=== PATIENT | female | born 2000 | race Caucasian/White ===

== ENCOUNTER 2019-06-03 10:47 | Emergency (ER) | payer OTHER ==
[2019-06-03 11:28] LABS: URINE APPEARANCE CLEAR; URINE BILIRUBIN NEGATIVE (NEGATIVE); URINE BLOOD NEGATIVE (NEGATIVE); URINE COLOR YELLOW; URINE GLUCOSE (UA) NEGATIVE (NEGATIVE); URINE KETONE NEGATIVE (NEGATIVE); URINE LEUKOCYTE ESTERASE NEGATIVE (NEGATIVE); URINE NITRITE NEGATIVE (NEGATIVE); URINE PROTEIN NEGATIVE (NEGATIVE); URINE UROBILINOGEN 0.2 E.U./dL (0.20 - 1.00)
[2019-06-03] MEDS ORDERED: KETOROLAC 30 MG/ML VIAL IVP ONE (11:31)
[2019-06-03 11:56] LABS: BASO % 0.3 % (0-6); EOS % 2.2 % (0-6); GRAN % 67.6 % (47-80); HEMATOCRIT 43.4 % (35.0-47.0); LYMPH % 25.6 % (16-45); MEAN CELL VOLUME 91.8 fl (81-97); MEAN CORPUSCULAR HEMOGLOBIN 29.6 pg (27-33); MEAN CORPUSCULAR HGB CONC 32.3 g/dl (32-36); MEAN PLATELET VOLUME 9.5 fl (7.4-10.4); MONO % 4.3 % (0-9); PLATELET COUNT 378 K/uL (130-400); RED BLOOD COUNT 4.73 M/uL (3.80-5.40); RED CELL DISTRIBUTION WIDTH 12.7 % (11.5-14.5); WHITE BLOOD COUNT W/O DIFF 7.7 K/uL (4.2-12.2)
--- NOTE | 2019-06-03 13:41 | ULTRASOUND REPORT ---
EXAMINATION: Complete Transabdominal and Endovaginal Ultrasound of the Pelvis EXAM DATE: 06/03/2019 1:04 PM TECHNIQUE: Endovaginal ultrasound imaging was performed after the transabdominal exam for better res olution. INDICATION: pain COMPARISON: None. Transabdominal Ultrasound of the Pelvis Findings: 1. Uterus Size: The uterus measures 7.8 x 3.8 x 4.6 cm in dimension (length x AP x width). 2. Endometrium: The endometrium images poorly transabdominally. The visualized endometrium measures 7 mm in thickness. 3. Myometrium: The myometrium images poorly transabdominally. The myometrium is unremarkable. 4. Ovaries: The right ovary measures 3.5 x 3.1 x 2.9 cm in dimension. The left ovary measures 3.1 x 2.4 x 2.7 cm in dimension. 5. Bilateral Adnexa: No adnexal masses or abnormal cysts are demonstrated. 6. Other Findings: No free fluid in the pelvis. Transvaginal Ultrasound of the Pelvis Findings: 1. Uterus Size: Normal. 2. Endometrium: The endometrium measures 7 mm in thickness. The endometrium is normal. 3. Myometrium: Normal. 4. Ovaries: The right ovary measures 3.6 x 1.8 x 2.4 cm. The left ovary measures 3.5 x 2.4 x 2.8 cm. 5. Other Findings: Peripheral arrangement of follicles in the ovaries with increased central stroma .. Doppler Imaging: Duplex Doppler ultrasound was performed to assess for an ovarian torsion. Color Dop pler images show symmetric blood flow in the ovaries. Intraovarian spectral arterial waveforms are sy mmetrical, unidirectional and have unremarkable uncorrected velocities. Impression: No acute abnormalities in the pelvis. No evidence of ovarian cyst or torsion. The morphology of the ovaries raises the concern for polycystic ovaries, question whether that is con cordant with the clinical history. This can also be seen as normal variation. Dictated by: Jonelle Montejo MD on 06/03/2019 1:34 PM. .
--- NOTE | 2019-06-03 14:02 | Emergency Department Record ---
History of Present Illness - General Chief Complaint: Abdominal Pain Stated Complaint: ABD PAIN Time Seen by Provider: 06/03/19 11:12 Source: Patient Mode of Arrival: Ambulatory Limitations: No limitations - History of Present Illness Initial Comments: pt is having unusual amt of bleeding wih small clots and pain in the lower quads. her menses was a month overdue and she was uncertain if she is Complaint: Abdominal pain Onset/Timin -: Days(s) Location: Suprapubic Radiation: Back Migration to: No migration Severity scale (1-10): 5 Quality: Aching Consistency: Constant Improves With: Nothing Worsens With: Nothing Associated Symptoms: Nausea, Vomiting - Related Data LMP (females 10-50): 2 months ago Patient : No Home Medications Medication Instructions Recorded Confirmed Last Taken No Home Med [NO HOME MEDS] 06/03/19 06/03/19 Unknown Allergies Allergy/AdvReac Type Severity Reaction Status Date / Time No Known Drug Allergies Allergy Verified 06/03/19 11:06 Travel Screening - Travel/Exposure Within Last 30 Days Have you traveled within the last 30 days?: No Review of Systems Reviewed: No additional complaints except as noted below Constitutional: Reports: As per HPI. Denies: Chills, Fever, Malaise, Night sweats, Weakness, Weight change Eyes: Reports: As per HPI. Denies: Eye discharge, Eye pain, Photophobia, Vision change ENT: Reports: As per HPI. Denies: Congestion, Dental pain, Ear pain, Epistaxis, Hearing loss, Throat pain Respiratory: Reports: As per HPI. Denies: Cough, Dyspnea, Hemoptysis, Stridor, Wheezes Cardiovascular: Reports: As per HPI. Denies: Arrhythmia, Chest pain, Dyspnea on exertion, Edema, Murmurs, Orthopnea, Palpitations, Paroxysmal nocturnal dyspnea, Rheumatic Fever, Syncope Endocrine: Reports: As per HPI. Denies: Fatigue, Heat or cold intolerance, Polydipsia, Polyuria Gastrointestinal: Reports: As per HPI. Denies: Abdominal pain, Constipation, Diarrhea, Hematemesis, Hematochezia, Melena, Nausea, Vomiting Genitourinary: Reports: As per HPI. Denies: Abnormal menses, Discharge, Dyspareunia, Dysuria, Frequency, Hematuria, Incontinence, Retention, Urgency Musculoskeletal: Reports: As per HPI. Denies: Arthralgia, Back pain, Gout, Joint swelling, Myalgia, Neck pain Skin: Reports: As per HPI. Denies: Bruising, Change in color, Change in hair/nails, Lesions, Pruritus, Rash Neurological: Reports: As per HPI. Denies: Abnormal gait, Confusion, Headache, Numbness, Paresthesias, Seizure, Tingling, Tremors, Vertigo, Weakness Psychiatric: Reports: As per HPI. Denies: Anxiety, Auditory hallucinations, Depression, Homicidal thoughts, Suicidal thoughts, Visual hallucinations Hematological/Lymphatic: Reports: As per HPI. Denies: Anemia, Blood Clots, Easy bleeding, Easy bruising, Swollen glands Past Medical History - SOCIAL HISTORY Smoking Status: Current every day smoker Alcohol Use: None Drug Use: None - RESPIRATORY Hx Respiratory Disorders: Yes Hx Bronchitis: Yes - CARDIOVASCULAR Hx Cardio Disorders: No - NEURO Hx Neuro Disorders: No - GI Hx GI Disorders: No - Hx Genitourinary Disorders: Yes Comment:: ovarian cysts - ENDOCRINE Hx Endocrine Disorders: No - MUSCULOSKELETAL Hx Musculoskeletal Disorders: No - PSYCH Hx Psych Problems: No - HEMATOLOGY/ONCOLOGY Hx Hematology/Oncology Disorders: No Family Medical History Any Significant Family History?: No Physical Exam - General General Appearance: Alert, Oriented x3, Cooperative, Mild distress - Head Head exam: Normal inspection - Eye Eye exam: Normal appearance, PERRL, EOMI Pupils: Normal accommodation - ENT ENT exam: Normal exam, Mucous membranes moist, Normal external ear exam, Normal orophraynx Ear exam: Normal external inspection. negative: External canal tenderness Nasal Exam: Normal inspection. negative: Discharge, Sinus tenderness Mouth exam: Normal external inspection, Tongue normal Teeth exam: Normal inspection. negative: Dental caries Throat exam: Normal inspection. negative: Tonsillar erythema, Tonsillar exudate - Neck Neck exam: Normal inspection, Full ROM. negative: Tenderness - Respiratory Respiratory exam: Normal lung sounds bilaterally. negative: Respiratory distress - Cardiovascular Cardiovascular Exam: Regular rate, Normal rhythm, Normal heart sounds - GI/Abdominal GI/Abdominal exam: Soft, Normal bowel sounds, Tenderness - Rectal Rectal exam: Deferred - exam: Deferred - Extremities Extremities exam: Normal inspection, Full ROM, Normal capillary refill. negative: Tenderness - Back Back exam: Reports: Normal inspection, Full ROM. Denies: Muscle spasm, Rash noted, Tenderness - Neurological Neurological exam: Alert, Normal gait, Oriented X3, Reflexes normal - Psychiatric Psychiatric exam: Normal affect, Normal mood - Skin Skin exam: Dry, Intact, Normal color, Warm Course Vital Signs 06/03/19 10:57 Temperature 98.0 F Pulse Rate 103 H Respiratory 20 Rate Blood Pressure 134/91 Pulse Ox 99 Medical Decision Making - Lab Data Result diagrams: 06/03/19 11:35 Lab Results 06/03/19 06/03/19 06/03/19 Range/Units 11:00 11:00 11:35 WBC 7.7 (4.2-12.2) K/uL RBC 4.73 (3.80-5.40) M/uL Hgb 14.0 (11.6-16.0) gm/dl Hct 43.4 (35.0-47.0) % MCV 91.8 (81-97) fl MCH 29.6 (27-33) pg MCHC 32.3 (32-36) g/dl RDW 12.7 (11.5-14.5) % Plt Count 378 (130-400) K/uL MPV 9.5 (7.4-10.4) fl Gran % 67.6 (47-80) % Lymphocytes % 25.6 (16-45) % Monocytes % 4.3 (0-9) % Eosinophils % 2.2 (0-6) % Basophils % 0.3 (0-6) % Absolute Neutrophils 5.20 Urine Color Yellow Urine Appearance Clear Urine pH 7.5 (5.0-8.0) Ur Specific [place] 1.020 (1.002-1.030) Urine Protein Negative (NEGATIVE) Urine Glucose (UA) Negative (NEGATIVE) Urine Ketones Negative (NEGATIVE) Urine Blood Negative (NEGATIVE) Urine Nitrite Negative (NEGATIVE) Urine Bilirubin Negative (NEGATIVE) Urine Urobilinogen 0.2 (0.20 - 1.00) E.U./dL Ur Leukocyte Esterase Negative (NEGATIVE) Urine HCG, Qual Negative (NEGATIVE) Disposition Disposition: Discharge Clinical Impression: Dysmenorrhea Disposition: Home, Self-Care Condition: (1) Good Instructions: Dysmenorrhea (ED) Additional Instructions: follow up with family doctor. return sooner if worse. motrin for pain with food Quality - Quality Measures Quality Measures: N/A - Blood Pressure Screening Does Patient Have Any of the Following: No Blood Pressure Classification: Hypertensive Reading Systolic Measurement: 134 Diastolic Measurement: 91 Screening for High Blood Pressure: < Pre-Hypertensive BP, F/U Documented > [[id number]] Pre-Hypertensive Follow-up Interventions: Follow-up with rescreen every year.
== END 2019-06-03 14:22 | disposition home or self-care (01) ==
LOC: ER 10:47
DX: N94.6 Dysmenorrhea, unspecified (principal); R11.2 Nausea with vomiting, unspecified; F17.210 Nicotine dependence, cigarettes, uncomplicated
CPT/HCPCS: 76830; 76856; 81003; 81025; 85025; 96374; 99284; J1885